=== PATIENT | female | born 1990 | race Hispanic/Latino ===

== ENCOUNTER 2016-12-25 19:41 | Emergency (ER) | payer OTHER ==
[~2016-12-25] VITALS: Ht 160 cm; Wt 63.6 kg
[~2016-12-25 19:41] MED LIST: NITR100 PO; PHEN-684 PO
[2016-12-25 19:55] VITALS: BP 112/77; PULSE 78; RESP 16; O2SAT 100
--- NOTE | 2016-12-25 20:41 | ED.REPORT ---
HPI- Female Date of Service Dec 25, 2016 ED Provider: Henrique Hall DO The patient is a 26 year old female who presents to the ED due to a possible UTI onset yesterday. Associated symptoms include dysuria and increased urination. She denies fever and back pain. Nursing Notes Stated Complaint: UTI SYMPTOMS Chief Complaint: Female Abdominal Pain Nursing Notes Reviewed: Yes Allergies: Coded Allergies: No Known Allergies (Unverified , 10/06/15) Scheduled Nitrofurantoin Monohyd/M-Cryst (MacroBid) 100 Mg Capsule 100 MG PO BID Scheduled PRN Phenazopyridine (Pyridium) 200 Mg Tablet 200 MG PO TID PRN PRN pain with urination General Time Seen by MD: 20:41 Chief Complaint Dysuria Hx Obtained From: Patient Arrived By: Walk-in Sudden in Onset?: Yes Symptom Duration: Since onset Recent Healthcare: No recent doctor visit, No recent hospitalization Similar Sx Previous: No Past Medical History Past Medical History previous UTI Past Surgical History Denies Smoking History Never Smoker Social History Other Social History: Good social support, Local resident Ambulatory Status Independent Review of Systems Constitutional: Denies: Fever Female: Reports: Dysuria, Urinary frequency, Urination increased Musculoskeletal: Denies: Back pain Complete sys rev & neg: except as marked. Physical Exam Initial Vital Signs Vital Signs (First) Date Time Temp Pulse Resp B/P Pulse Ox O2 Delivery O2 Flow Rate FiO2 12/25/16 19:55 36.4 78 16 112/77 100 Initial VS: Reviewed General/Constitutional: Well-developed, Well-nourished Head / Eyes: Atraumatic, Normocephalic, PERRL ENT: Mucous membranes moist Respiratory: Breath sounds normal, Clear to auscultation, No respiratory distress Cardiovascular: Regular rate & rhythm, Heart sounds normal Abdomen / GI: Soft, Non-tender, No guarding, No rebound Extremities: Vascular intact, Neuro intact, No swelling Skin: Warm, Dry Female Genitourinary: Exam deferred Interpretation & Diagnostics Lab Results Interpretation Test 12/25/16 20:30 Urine Color Straw (YELLOW) Urine Appearance Clear (CLEAR,HAZY) Urine pH 5.5 (5.0-8.0) Urine Specific [place] <1.005 (1.003-1.035) Urine Protein Negativemg/dL (NEG,TRACE) Urine Glucose (UA) Negativemg/dL (NEGATIVE) Urine Ketones Negativemg/dL (NEGATIVE) Urine Occult Blood Small (NEGATIVE) Urine Nitrite Negative (NEGATIVE) Urine Bilirubin Negative (NEGATIVE) Urine Urobilinogen Normalmg/dL (NORMAL) Urine Leukocyte Esterase Large (NEGATIVE) Urine RBC 3-10/hpf (0-2) Urine WBC 11-50/hpf (0-5) Urine Epithelial Cells Few/hpf (NONE-MOD) Urine Crystals None seen (NONE SEEN) Urine Bacteria Many/hpf (NONE-FEW) Urine Hyaline Casts None/lpf (NONE) Urine Granular Casts None seen (NONE SEEN) Urine Waxy Casts None seen (NONE SEEN) Urine Red Blood Cell Casts None seen (NONE SEEN) Urine White Blood Cell Casts None seen (NONE SEEN) Urine Mucus None seen (None Seen) Urine Trichomonas None seen (NONE SEEN) Urine Yeast None (NONE SEEN) Urinalysis Comment None Urine Culture Reflexed Indicated Re-Eval/Medical Decision Med Decision/Clinical Course No signs or symptoms of pyelonephritis or STD or pelvic inflammatory disease. Classic cystitis. Non female. Keflex recommended. Altered urine ordered. Close outpatient follow-up recommended. Counseled Regarding: Diagnosis, Lab results, Need for follow-up, When/why to return to ED Discharge & Departure Impression: Primary Impression: Urinary tract infection Urinary tract infection type: acute cystitis Hematuria presence: without hematuria Qualified Code: N30.00 - Acute cystitis without hematuria Disposition: Home Discharge Condition All VS Reviewed: Yes Condition: Stable Patient Instructions: Urinary Tract Infection in Women (ED) Additional Instructions: Keflex 4 times daily for 5 days. Tylenol or Motrin as directed for pain. Drink plenty of liquids. We will culture urine sample. This will be available next week. Set up a follow-up with your primary care physician or with the referral clinic for a recheck and review the culture results. Return if any problems or any new or worsening symptoms. Return if any fever or intolerance to the antibiotics. Referrals: HEATHER (PCP) [facility] Scribe Attestation Portion of this note were transcribed by Yuki Brothers. I, Dr. Hall, personally performed the history, physical exam, and medical decision-making: I reviewed and confirmed the accuracy for the information in the transcribed note. Signed by: pollo Salmeron, 12/25/16 2200 copies to: NOPCP; [facility] Henrique Hall DO Dec 25, 2016 20:41 Yuki Brothers Dec 25, 2016 20:53
[2016-12-25 20:53] LABS: APPEARANCE,URINE CLEAR (CLEAR,HAZY); COLOR,URINE STRAW (YELLOW); OCCULT BLOOD,URINE SMALL (NEGATIVE); PH,URINE 5.5 (5.0-8.0); UROBILINOGEN,URINE NORMAL (NORMAL)
== END 2016-12-25 21:02 | disposition home or self-care (01) ==
LOC: SED 19:41
DX: N30.00 Acute cystitis without hematuria (principal); B95.7 Other staphylococcus as the cause of diseases classified elsewhere; Z87.440 Personal history of urinary (tract) infections